=== PATIENT | female | born 1950 | race Caucasian/White ===

== ENCOUNTER 2018-06-20 21:45 | Emergency (ER) | payer OTHER ==
[2018-06-20] MEDS ORDERED: NS 1,000 ML IV ONE (21:55)
--- NOTE | 2018-06-20 21:55 | EDPHY ---
H & P Time Seen by Provider: 06/20/18 21:55 HPI/ROS: HPI CHIEF COMPLAINT: Syncope. Left rib pain. HISTORY OF PRESENT ILLNESS: Very pleasant 67-year-old female she does have a history of seizures, additionally history of multiple orthopedic surgeries, she presents emergency room by EMS for syncopal episode. Patient states that around 5:00 p.m. She was getting off the toilet reaching head of her and lost her grain receiver this caused her to fall backwards landing on the ground mainly on her left side. She thinks she may have injured 1 of her left ribs when this happened. She got over this, then was eating dinner tonight she started feel unwell. She states she felt nauseous. She went to lay down on the bed. She laid on the bed and then had a syncopal episode she fell off the bed. Denies head strike. She 9 really any preceding symptoms except nausea. She does think may be she twisted weird and had severe rib pain and this caused her to pass out. Denies any chest pain or shortness of breath or palpitations or dizziness, or significant lightheadedness when this happened. She arrives to the emergency room by EM S. Stable condition. Vital signs stable no acute distress. Main complaint left rib pain. Daughter was there when this happened. Did not witness any seizure activity. No postictal state. Past Medical History: Seizures Past Surgical History: Multiple orthopedic surgeries Social History: Visiting from [place], arrived here on Friday. Did do a lot of walking today. Family History: Noncontributory ROS REVIEW OF SYSTEMS: 10 Systems were reviewed and negative with the exception of the elements mentioned in the history of present illness. Exam Constitutional nontoxic appearing in no acute distress, triage nursing summary reviewed, vital signs reviewed, awake/alert. Eyes normal conjunctivae and sclera, EOMI, PERRLA. HENT normal inspection, atraumatic, moist mucus membranes, no epistaxis, neck supple/ no meningismus, no raccoon eyes. Respiratory clear to auscultation bilaterally, normal breath sounds, no respiratory distress, no wheezing. Cardiovascular chest wall: Mild tender palpation over the left anterior chest wall 1 focal area inferior to her left breast fall, no crepitus, no flail chest rate normal, regular rhythm, no murmur, no edema, distal pulses normal. Gastrointestinal soft, non-tender, no rebound, no guarding, normal bowel sounds, no distension, no pulsatile mass. Genitourinary no CVA tenderness. Musculoskeletal no midline vertebral tenderness, full range of motion, no calf swelling, no tenderness of extremities, no meningismus, good pulses, neurovascularly intact. Skin pink, warm, & dry, no rash, skin atraumatic. Neurologic awake, alert and oriented x 3, AAOx3, moves all 4 extremities equally, motor intact, sensory intact, CN II-XII intact, normal cerebellar, normal vision, normal speech. Psychiatric normal mood/affect. Heme/Lymph/Immune no lymphadenopathy. Differential Diagnosis: Includes but is not limited to in a particular order vasovagal syncope, orthostatic syncope, dehydration, pneumothorax, tension pneumothorax, rib fracture, cardiac arrhythmia, acute coronary syndrome Medical Decision Making: Plan for this patient IV establishment IV fluid bolus , check basic blood work, EKG, troponin, cardiac monitoring, two view chest x- ray. Re-evaluation: EKG interpretation by me on record in [facility] system. Impression time of EKG 2200, sinus rhythm rate of 76, no signs of cardiac arrhythmia no signs of acute ischemia no ST elevation or ST depression. No significant T-wave abnormalities. Unremarkable nonischemic EKG. Troponin 0.01. ED x-ray chest two view rib fracture present left side. No pneumothorax. Read by Radiology. 1202: Patient ambulated well throughout the emergency room without any difficulty. Patient is eager to be discharged. Most likely has a vasovagal response leading to syncope from her rib fracture. No evidence of pneumothorax on chest x-ray. Recommend 7 spirometer, anti-inflammatory pain medicine, narcotic pain medicine if needed. Additionally rest, no vigorous activity. Return precautions discussed with the patient and daughter at bedside return if worsening symptoms including chest pain, shortness of breath, syncope. Source: Patient, EMS Constitutional: Initial Vital Signs Temperature (C) 36.9 C 06/20/18 21:45 Heart Rate 74 06/20/18 21:45 Respiratory Rate 16 06/20/18 21:45 Blood Pressure 115/66 06/20/18 21:45 O2 Sat (%) 95 06/20/18 21:45 O2 Delivery Mode Room Air O2 (L/minute) 2 Allergies/Adverse Reactions: Latex, Natural Rubber Allergy (Verified 06/20/18 21:50) Home Medications: Medication Instructions Recorded Aspirin 06/20/18 Hydrocodone/APAP 5/325 [Keystone 1 - 2 tab PO Q4H PRN #10 tab 06/20/18 5/325] Ibuprofen [Motrin (*)] 800 mg PO Q6-8PRN #14 tab 06/20/18 Lamotrigine 06/20/18 Medical Decision Making - Diagnostics Imaging Results: Imaging Impressions Chest X-Ray 06/20/18 21:55 Impression: Minimal pleural thickening seen at the left lateral lung base which could be pleural scarring or secondary to subtle nondisplaced rib fracture. Minimal scarring or diskoid atelectasis left lung base. No evidence for pleural effusion or pneumothorax. - Data Points Laboratory Results: Laboratory Results 06/20/18 21:58 06/20/18 21:58 06/20/18 06/20/18 06/20/18 21:58 21:58 21:52 WBC 7.10 10^3/uL 10^3/uL (3.80-9.50) RBC 4.44 10^6/uL 10^6/uL (4.18-5.33) Hgb 14.0 g/dL g/dL (12.6-16.3) Hct 40.8 % % (38.0-47.0) MCV 91.9 fL fL (81.5-99.8) MCH 31.5 pg pg (27.9-34.1) MCHC 34.3 g/dL g/dL (32.4-36.7) RDW 12.9 % % (11.5-15.2) Plt Count 321 10^3/uL 10^3/uL (150-400) MPV 9.6 fL fL (8.7-11.7) Neut % (Auto) 41.3 % % (39.3-74.2) Lymph % (Auto) 49.0 % H % (15.0-45.0) Beckham % (Auto) 8.0 % % (4.5-13.0) Eos % (Auto) 0.0 % L % (0.6-7.6) Baso % (Auto) 1.0 % % (0.3-1.7) Nucleat RBC Rel Count 0.0 % % (0.0-0.2) Absolute Neuts (auto) 2.93 10^3/uL 10^3/uL (1.70-6.50) Absolute Lymphs (auto) 3.48 10^3/uL H 10^3/uL (1.00-3.00) Absolute Monos (auto) 0.57 10^3/uL 10^3/uL (0.30-0.80) Absolute Eos (auto) 0.00 10^3/uL L 10^3/uL (0.03-0.40) Absolute Basos (auto) 0.07 10^3/uL 10^3/uL (0.02-0.10) Absolute Nucleated RBC 0.00 10^3/uL 10^3/uL (0-0.01) Immature Gran % 0.7 % % (0.0-1.1) Immature Gran # 0.05 10^3/uL 10^3/uL (0.00-0.10) Sodium 138 mEq/L mEq/L (135-145) Potassium 4.3 mEq/L mEq/L (3.3-5.0) Chloride 107 mEq/L mEq/L (97-110) Carbon Dioxide 22 mEq/l mEq/l (22-31) Anion Gap 9 mEq/L mEq/L (8-16) BUN 12 mg/dL mg/dL (7-23) Creatinine 1.0 mg/dL mg/dL (0.6-1.0) Estimated GFR 55 Glucose 131 mg/dL H mg/dL (70-100) Calcium 9.5 mg/dL mg/dL (8.5-10.4) Magnesium 2.1 mg/dL mg/dL (1.6-2.3) Total Bilirubin 0.3 mg/dL mg/dL (0.1-1.4) Conjugated Bilirubin 0.2 mg/dL mg/dL (0.0-0.5) Unconjugated Bilirubin 0.1 mg/dL mg/dL (0.0-1.1) AST 23 IU/L IU/L (14-46) ALT 23 IU/L IU/L (9-52) Alkaline Phosphatase 81 IU/L IU/L (38-126) POC Troponin I 0.01 ng/mL ng/mL (0.00-0.08) NT-Pro-B Natriuret Pep 162 pg/mL H pg/mL (0-125) Total Protein 6.8 g/dL g/dL (6.3-8.2) Albumin 4.2 g/dL g/dL (3.5-5.0) Medications Given: Discontinued Medications Sodium Chloride (Ns) 1,000 mls @ 0 mls/hr IV EDNOW ONE; Wide Open PRN Reason: Protocol Stop: 06/20/18 21:56 Last Admin: 06/20/18 22:22 Dose: 1,000 mls Point of Care Test Results: Chemistry 06/20/18 21:52 POC Troponin I 0.01 ng/mL ng/mL (0.00-0.08) Departure - Departure Disposition: Home, Routine, Self-Care Clinical Impression: Syncope Qualifiers: Syncope type: vasovagal syncope Qualified Code(s): R55 - Syncope and collapse Rib fracture Qualifiers: Encounter type: initial encounter Rib fracture type: single rib Fracture type: closed Laterality: left Qualified Code(s): S22.32XA - Fracture of one rib, left side, initial encounter for closed fracture Condition: Good Instructions: Rib Fracture (ED), Syncope (ED) Additional Instructions: 1. Rest and stay well-hydrated. 2. Return emergency room if he develops worsening pain, syncope, questions or concerns. Referrals: Patient,NotPresent [Unknown] - As per Instructions Prescriptions: Hydrocodone/APAP 5/325 [Keystone 5/325] 1 - 2 tab PO Q4H PRN #10 tab PRN Reason: Pain, Moderate Ibuprofen [Motrin (*)] 800 mg PO Q6-8PRN #14 tab
[2018-06-20 22:03] LABS: PLATELET COUNT 321 10^3/uL (150-400)
[2018-06-21 00:08] VITALS: BP 132/83
[2018-06-21] MEDS ORDERED: HYDROCOD/APAP 5/325 PREPACK#6 BTL TAKEHOME ONE ×2 (00:12→00:13)
--- NOTE | 2018-06-21 11:06 | CPEKG ---
Test Reason : OPEN Blood Pressure : / mmHG Vent. Rate : 076 BPM Atrial Rate : 075 BPM P-R Int : 176 ms QRS Dur : 085 ms QT Int : 423 ms P-R-T Axes : 049 003 009 degrees QTc Int : 476 ms Sinus rhythm Abnormal R-wave progression, early transition Confirmed by Trung Bowling ([id number]) on 06/21/2018 11:05:42 AM Referred By: Confirmed By:Trung Bowling
== END 2018-06-21 00:25 | disposition home or self-care (01) ==
DX: R55 Syncope and collapse (principal); S22.32XA Fracture of one rib, left side, initial encounter for closed fracture; E86.9 Volume depletion, unspecified; W18.11XA Fall from or off toilet without subsequent striking against object, initial encounter; Y92.002 Bathroom of unspecified non-institutional (private) residence as the place of occurrence of the external cause
CPT/HCPCS: 84484-PO